=== PATIENT | female | born 1945 ===

== ENCOUNTER → 2024-03-02 | Outpatient (CLI) | payer MEDICARE, OTHER ==
[2024-03-02 12:47] LABS: International Normalized Ratio 2.07; Prothrombin Time Results 20.9 Sec (9.7-11.5)
== END ==
LOC: LAB SHORT 11:57 → LAB 11:57
PROVIDERS: Physician Assistant Medical
DX: Z79.01 Long term (current) use of anticoagulants (principal)
CPT/HCPCS: 85610